=== PATIENT | female | born 1995 | race Two or more races ===

== ENCOUNTER 2017-11-13 17:17 | Emergency (ER) | payer MEDICAID ==
[2017-11-13 19:11] VITALS: BP 113/77
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
== END 2017-11-13 20:43 | disposition home or self-care (01) ==
LOC: UCCORT 17:17
DX: R30.0 Dysuria (principal); Z32.02 Encounter for pregnancy test, result negative; S00.03XA Contusion of scalp, initial encounter; X58.XXXA Exposure to other specified factors, initial encounter; Y93.9 Activity, unspecified; Y92.9 Unspecified place or not applicable
CPT/HCPCS: 81003; 84702; 87077; 87086; 87186; 99202; G0463